=== PATIENT | male | born 1995 | race Caucasian/White ===

== ENCOUNTER 2020-03-01 13:23 | Emergency (ER) | payer OTHER ==
--- NOTE | 2020-03-01 13:39 | ED Physician Documentation ---
PD HPI CHEST PAIN - Stated complaint Stated Complaint: CHEST PX - Chief complaint Chief Complaint: Cardiac - History obtained from History obtained from: Patient - History of Present Illness Timing - onset: Yesterday Timing - onset during: Rest Timing - duration: Hours Timing - details: Gradual onset, Still present Quality: Pressure Location: Left chest Radiation: Left upper extremity Improved by: Nothing Worsened by: Other (nothing) Associated symptoms: Feeling faint / dizzy Similar symptoms before: Has not had sx before Recently seen: Not recently seen - Additional information Additional information: Previously well 24-year-old male has developed some pain in his left substernal chest area radiating into his left arm. He states that this is a 3-4 out of 10. He has persistence of this pain and he is come out to the emergency department for evaluation feeling some lightheadedness yesterday. Review of Systems Constitutional: denies: Fever, Myalgias Eyes: denies: Decreased vision Ears: denies: Ear pain, Drainage/discharge Nose: denies: Rhinorrhea / runny nose, Congestion Throat: denies: Sore throat Cardiac: reports: Chest pain / pressure. denies: Palpitations, Pedal edema, Calf pain Respiratory: denies: Dyspnea, Cough GI: denies: Abdominal Pain, Nausea, Vomiting : denies: Dysuria, Frequency PD PAST MEDICAL HISTORY - Present Medications Home Medications: Ambulatory Orders Medication Instructions Recorded Confirmed No Known Home Medications 03/01/20 03/01/20 - Allergies Allergies/Adverse Reactions: Allergies Allergy/AdvReac Type Severity Reaction Status Date / Time No Known Drug Allergies Allergy Verified 03/01/20 13:31 PD ED PE NORMAL - Vitals Vital signs reviewed: Yes (hpyertensive ) - General General: Alert and oriented X 3, No acute distress, Well developed/nourished - HEENT HEENT: Atraumatic, PERRL, EOMI - Neck Neck: Supple, no meningeal sign, No bony TTP - Cardiac Cardiac: RRR, No murmur - Respiratory Respiratory: No respiratory distress, Clear bilaterally, Other (mild chest wall pain to palp) - Abdomen Abdomen: Soft, Non tender - Back Back: No CVA TTP, No spinal TTP - Derm Derm: Normal color, Warm and dry, No rash - Extremities Extremities: No deformity, No edema, No calf tenderness / cord - Neuro Neuro: Alert and oriented X 3, licensed final expense agents 2-12 intact, No motor deficit, No sensory deficit, Normal speech Eye Opening: Spontaneous Motor: Obeys Commands Verbal: Oriented GCS Score: 15 - Psych Psych: Normal mood, Normal affect Results - Vitals Vitals: Vital Signs - 24 hr 03/01/20 03/01/20 03/01/20 13:31 14:03 14:30 Temperature 36.8 C 36.5 C Heart Rate 68 54 L 69 Respiratory 18 18 15 Rate Blood Pressure 148/91 H 119/60 119/76 O2 Saturation 100 100 99 Oxygen O2 Source Room air - EKG (time done) 1331 Rate: Rate (enter#) Rhythm: NSR Ischemia: Non specific changes (repolarization abnormality to the inferior leads) Compare to prior EKG: Old EKG unavailable Computer interpretation: Disagree with computer (I do not see ST elevation in V5/6) - Labs Labs: Laboratory Tests 03/01/20 03/01/20 03/01/20 13:43 13:43 13:43 WBC 5.5 RBC 5.03 Hgb 15.2 Hct 44.1 MCV 87.7 MCH 30.2 MCHC 34.5 RDW 12.0 Plt Count 230 MPV 11.2 Neut # (Auto) 2.8 Lymph # (Auto) 2.1 [place] # (Auto) 0.5 Eos # (Auto) 0.1 Baso # (Auto) 0.1 Absolute Nucleated RBC 0.00 Nucleated RBC % 0.0 Sodium 138 Potassium 4.1 Chloride 102 Carbon Dioxide 27 Anion Gap 9.0 BUN 15 Creatinine 1.0 Estimated GFR (MDRD) 90 Glucose 95 Calcium 9.6 Total Bilirubin 0.7 AST 30 ALT 55 Alkaline Phosphatase 46 Troponin I High Sens 2.6 Total Protein 7.9 Albumin 4.6 Globulin 3.3 Albumin/Globulin Ratio 1.4 Lipase 40 - Rads (name of study) chest Radiology: Prelim report reviewed (Impression: Mildly reduced inspiratory volume, source of chest pain is not seen.), EMP read indepedently, See rad report PD MEDICAL DECISION MAKING - ED course Complexity details: reviewed results, re-evaluated patient, considered differential, d/w patient ED course: 24 y/o male with atypical chest pain with negative diagnostics. Departure - Departure Disposition: 01 Home, Self Care Clinical Impression: Atypical chest pain Condition: Stable Instructions: ED Chest Pain Atypical Unkn Cause Follow-Up: [facility] [Provider Group] Discharge Date/Time: 03/01/20 14:41
[2020-03-01] MEDS ORDERED: KETOROLAC 30 MG/ML VIAL IVP STA (13:46)
[2020-03-01] MEDS ORDERED: DEXAMETHASONE 10 MG/ML VIAL IVP STA (13:46)
[2020-03-01 13:58] LABS: BASOPHILS # (AUTO) 0.1 10^3/uL (0.0-0.1); BASOPHILS % (AUTO) 0.9 %; EOSINOPHILS # (AUTO) 0.1 10^3/uL (0.0-0.7); HGB - HEMOGLOBIN 15.2 g/dL (14.0-18.0); LYMPHOCYTES # (AUTO) 2.1 10^3/uL (1.5-3.5); LYMPHOCYTES % (AUTO) 37.8 %; MEAN CORPUSCULAR HEMOGLOBIN 30.2 pg (27.0-31.0); MEAN CORPUSCULAR HGB CONC 34.5 g/dL (32.0-36.0); MEAN CORPUSCULAR VOLUME 87.7 fL (80.0-94.0); MEAN PLATELET VOLUME 11.2 fL (7.4-11.4); MONOCYTES # (AUTO) 0.5 10^3/uL (0.0-1.0); MONOCYTES % (AUTO) 8.2 %; NEUTROPHILS # (AUTO) 2.8 10^3/uL (1.5-6.6); NEUTROPHILS % (AUTO) 50.7 %; PLT - PLATELET COUNT 230 10^3/uL (130-450); RED BLOOD COUNT 5.03 10^6/uL (4.70-6.10); WHITE BLOOD COUNT 5.5 x10^3/uL (4.8-10.8)
--- NOTE | 2020-03-01 14:02 | XRAY Report ---
PROCEDURE: Chest 1 View X-Ray INDICATIONS: chest pain TECHNIQUE: One view of the chest was acquired. COMPARISON: FINDINGS: Surgical changes and devices: None. Lungs and pleura: No pleural effusions or pneumothorax. Lungs are clear considering mildly reduced inspiratory volume. Mediastinum: Mediastinal contours appear normal. Heart size is normal. Bones and chest wall: No suspicious bony lesions. Overlying soft tissues appear unremarkable. IMPRESSION: Mildly reduced inspiratory volume, source of chest pain is not seen. Reviewed by: Neftali Pepper MD on 03/01/2020 2:01 PM PDT Approved by: Neftali Pepper MD on 03/01/2020 2:01 PM PDT Station ID: [id number]
[2020-03-01 14:12] LABS: ALBUMIN 4.6 g/dL (3.2-5.5); ALBUMIN/GLOBULIN RATIO 1.4 (1.0-2.2); BILIRUBIN,TOTAL 0.7 mg/dL (0.2-1.0); CALCIUM 9.6 mg/dL (8.5-10.3); TOTAL PROTEIN 7.9 g/dL (6.7-8.2)
[2020-03-01 14:40] VITALS: BP 119/76
== END 2020-03-01 14:41 | disposition home or self-care (01) ==
LOC: ED 13:23
DX: R07.89 Other chest pain (principal); R03.0 Elevated blood-pressure reading, without diagnosis of hypertension
CPT/HCPCS: 36415; 71045; 80053; 83690; 84484; 85025; 93005; 96374; 99284

== ENCOUNTER 2020-08-13 17:37 | Emergency (ER) | payer OTHER ==
[2020-08-13] MEDS ORDERED: KETOROLAC 30 MG/ML VIAL IM STA (19:58)
[2020-08-13] MEDS ORDERED: PROMETHAZINE 25 MG/1 ML VIAL IM STA (19:58)
[2020-08-13] MEDS ORDERED: ONDANSETRON ODT 4 MG TABLET TL STA (20:07)
--- NOTE | 2020-08-13 20:36 | ED Physician Documentation ---
PD HPI HEADACHE - Stated complaint Stated Complaint: AGEE/VOMITING - Chief complaint Chief Complaint: Neuro - History obtained from History obtained from: Patient - History of Present Illness Timing - onset: Today Timing - onset during: Rest Timing - details: Gradual onset Pain level max: 8 Pain level now: 8 Location: Global Quality: Throbbing, Aching. No: Thunderclap Associated symptoms: Nausea, Vomiting Improved by: Rest Worsened by: Light, Noise, Moving Contributing factors: No: Anticoagulated, Possible carbon monoxide, Hypertension, Recent illness, Trauma Similar symptoms before: Diagnosis (Migraine headaches) - Additional information Additional information: 25-year-old male with a headache today. He states similar to his prior history of migraine headaches. Has been going on throughout most of the day. Gradual in onset, 8 out of 10. Global, throbbing aching. Has had nausea and vomiting today as well. Has not taken anything for the headache. No recent trauma. Review of Systems Constitutional: denies: Fever, Chills Cardiac: denies: Chest pain / pressure Respiratory: denies: Cough GI: reports: Nausea, Vomiting. denies: Abdominal Pain, Diarrhea Skin: denies: Rash, Abrasion (s) Musculoskeletal: denies: Neck pain, Back pain Neurologic: denies: Focal weakness, Seizure, Head injury PD PAST MEDICAL HISTORY - Past Medical History Past Medical History: Yes Neuro: Migraines - Past Surgical History Past Surgical History: No - Present Medications Home Medications: Ambulatory Orders Medication Instructions Recorded Confirmed Ondansetron Odt [Zofran] 4 mg TL Q6H PRN #10 tablet 08/13/20 - Allergies Allergies/Adverse Reactions: Allergies Allergy/AdvReac Type Severity Reaction Status Date / Time No Known Drug Allergies Allergy Verified 08/13/20 17:54 - Social History Does the pt smoke?: No Smoking Status: Never smoker Does the pt drink ETOH?: No Does the pt have substance abuse?: No - Immunizations Immunizations are current?: Yes - POLST Patient has POLST: No PD ED PE NORMAL - Vitals Vital signs reviewed: Yes - General General: Alert and oriented X 3, No acute distress - HEENT HEENT: Atraumatic, PERRL, EOMI, Moist mucous membranes, Pharynx benign - Neck Neck: Supple, no meningeal sign, No bony TTP - Cardiac Cardiac: RRR, Strong equal pulses - Respiratory Respiratory: No respiratory distress, Clear bilaterally - Abdomen Abdomen: Soft, Non tender, Non distended - Back Back: No spinal TTP - Derm Derm: Warm and dry - Neuro Neuro: Alert and oriented X 3, distribution transformer assembler 2-12 intact, No motor deficit, No sensory deficit, Normal speech Eye Opening: Spontaneous Motor: Obeys Commands Verbal: Oriented GCS Score: 15 - Psych Psych: Normal mood, Normal affect Results - Vitals Vitals: Vital Signs - 24 hr 08/13/20 08/13/20 17:49 20:50 Temperature 36.8 C 36.4 C L Heart Rate 75 73 Respiratory 15 16 Rate Blood Pressure 121/64 138/73 H O2 Saturation 100 99 Oxygen O2 Source Room air PD MEDICAL DECISION MAKING - ED course Complexity details: reviewed results, re-evaluated patient, considered differential, d/w patient ED course: 25-year-old male with his usual migraine headache. Given Toradol and Zofran. Nausea and vomiting resolved. Headache resolved. Request to go home. No evidence of subarachnoid hemorrhage, tumor. Patient counseled regarding signs and symptoms for which I believe and urgent re-evaluation would be necessary. Patient with good understanding of and agreement to plan and is comfortable go ing home at this time This document was made in part using voice recognition software. While efforts are made to proofread this document, sound alike and grammatical errors may occur. Departure - Departure Disposition: 01 Home, Self Care Clinical Impression: Migraine Qualifiers: Migraine type: unspecified Status migrainosus presence: without status migrainosus Intractability: not intractable Qualified Code(s): G43.909 - Migraine, unspecified, not intractable, without status migrainosus Vomiting Qualifiers: Vomiting type: unspecified Vomiting Intractability: non-intractable Nausea presence: with nausea Qualified Code(s): R11.2 - Nausea with vomiting, unspecified Condition: Good Instructions: ED Headache Migraine, ED Nausea Vomiting Follow-Up: your,doctor in 1 week [Other] Prescriptions: Ondansetron Odt [Zofran] 4 mg TL Q6H PRN #10 tablet PRN Reason: Nausea / Vomiting Comments: Follow-up with your doctor for further care. Return if you worsen. Drink plenty of fluids and rest. You can use Motrin or Tylenol as needed for headaches. Discharge Date/Time: 08/13/20 21:04
[2020-08-13 20:54] VITALS: BP 138/73
== END 2020-08-13 21:04 | disposition home or self-care (01) ==
LOC: ED 17:37
DX: G43.909 Migraine, unspecified, not intractable, without status migrainosus (principal)
CPT/HCPCS: 96372; 99283; 99284; Q0162

== ENCOUNTER 2021-01-10 08:00 | Outpatient (CLI) | payer OTHER ==
[2021-01-10 20:55] LABS: RAPID STREP SCREEN Negative (Negative)
== END 2021-01-10 23:59 | disposition home or self-care (01) ==
LOC: LAB.N 08:00
PROVIDERS: ATTEND Family Medicine
DX: R05 Cough (principal); R07.0 Pain in throat; Z20.822 Contact with and (suspected) exposure to COVID-19
CPT/HCPCS: 87070; 87077; 87430

== ENCOUNTER 2021-04-23 06:53 | Emergency (ER) | payer OTHER ==
[2021-04-23] MEDS ORDERED: DEXAMETHASONE 10 MG/ML VIAL IVP STA (07:30)
[2021-04-23] MEDS ORDERED: SODIUM CHLORIDE 0.9% 1,000 ML IV STA (07:30)
[2021-04-23] MEDS ORDERED: KETOROLAC 30 MG/ML VIAL IVP STA (07:30)
[2021-04-23] MEDS ORDERED: PROCHLORPERAZINE 10 MG/2 ML VIAL IVP STA (07:31)
--- NOTE | 2021-04-23 07:31 | ED Physician Documentation ---
PD HPI HEADACHE - Stated complaint Stated Complaint: HEAD PX/BODY ACHES - Chief complaint Chief Complaint: Neuro - History obtained from History obtained from: Patient - History of Present Illness Timing - onset: How many weeks ago (1) Timing - onset during: Rest, Light activity Timing - duration: Weeks (1) Timing - details: Gradual onset, Still present Worst headache ever?: No: Worst headache ever? (similar in chracter to few prior headaches, dx migraines. Had MRI few years ago in eval of headaches. Current one is similar though longest he has had and somewhat more intense.) Location: Right Quality: Throbbing, Aching Associated symptoms: Nausea. No: Fever, Stiff neck, Vomiting, Weakness, Numbness Improved by: Dark room Worsened by: Light, Noise Contributing factors: No: Recent illness (was not ill with onset of the headache, but has felt aches and malaise the past day now.), Trauma Similar symptoms before: Has not had sx before Review of Systems Constitutional: reports: Myalgias (just the past day). denies: Fever Nose: denies: Rhinorrhea / runny nose, Congestion Throat: denies: Sore throat Cardiac: denies: Chest pain / pressure Respiratory: denies: Cough GI: reports: Nausea. denies: Abdominal Pain, Vomiting Skin: denies: Rash, Lesions Neurologic: denies: Focal weakness, Numbness PD PAST MEDICAL HISTORY - Past Medical History Cardiovascular: None Respiratory: None Neuro: Migraines Endocrine/Autoimmune: None - Past Surgical History Past Surgical History: No - Present Medications Home Medications: Ambulatory Orders Medication Instructions Recorded Confirmed HYDROcod/ACETAM 5/325 [[place] 5/325] 1 ea PO Q6H PRN #5 tablet 04/23/21 Ondansetron Odt [Zofran] 4 mg TL Q6H PRN #10 tablet 04/23/21 dexAMETHasone [Decadron] 4 mg PO DAILY #5 tablet 04/23/21 - Allergies Allergies/Adverse Reactions: Allergies Allergy/AdvReac Type Severity Reaction Status Date / Time No Known Drug Allergies Allergy Verified 04/23/21 07:09 - Social History Does the pt smoke?: No Smoking Status: Never smoker Does the pt drink ETOH?: No Does the pt have substance abuse?: No - Immunizations Immunizations are current?: Yes - POLST Patient has POLST: No PD ED PE NORMAL - Vitals Vital signs reviewed: Yes - General General: Alert and oriented X 3, Well developed/nourished, Other (appears uncomfortable, with light sensitive. ) - HEENT HEENT: Atraumatic, Pharynx benign - Neck Neck: Supple, no meningeal sign, No adenopathy - Cardiac Cardiac: RRR, No murmur - Respiratory Respiratory: Clear bilaterally - Abdomen Abdomen: Soft, Non tender - Derm Derm: Normal color, Warm and dry - Extremities Extremities: Normal ROM s pain - Neuro Neuro: Alert and oriented X 3, No motor deficit, No sensory deficit, Normal speech Results - Vitals Vitals: Vital Signs - 24 hr 04/23/21 04/23/21 07:06 09:20 Temperature 36.4 C L Heart Rate 72 60 Respiratory 16 16 Rate Blood Pressure 136/77 H 126/73 O2 Saturation 97 99 Oxygen O2 Source Room air PD MEDICAL DECISION MAKING - ED course Complexity details: re-evaluated patient (headache improved with Toradol/Compazine/decadron. Seems c/w migraine. Shared decision to not do much testing. ), considered differential (migraine like headache and symptoms for a week. Now also some myalgias for a day. ), d/w patient Departure - Departure Disposition: 01 Home, Self Care Clinical Impression: Migraine headache Qualifiers: Migraine type: without aura Status migrainosus presence: with status migrainosus Intractability: not intractable Qualified Code(s): G43.001 - Migraine without aura, not intractable, with status migrainosus Condition: Stable Record reviewed to determine appropriate education?: Yes Instructions: ED Headache Migraine Follow-Up: BAM GRADY MD [Primary Care Provider] - Prescriptions: dexAMETHasone [Decadron] 4 mg PO DAILY #5 tablet HYDROcod/ACETAM 5/325 [[place] 5/325] 1 ea PO Q6H PRN #5 tablet PRN Reason: Pain Ondansetron Odt [Zofran] 4 mg TL Q6H PRN #10 tablet PRN Reason: Nausea / Vomiting Comments: This sounds like a prolonged migraine headache. I would anticipate it continuing to decrease and be away today. If you have some lingering headache, you can use Tylenol every 4 hours for pain or hydrocodone if needed for worse pain. If you do have any lingering headache through the day or into tomorrow, then also use the Decadron steroid daily for a few more days. Use ondansetron if needed for nausea. If you are improved through today and feel better then return to work tomorrow. Have the prescription medicines in reserve for future migraine headaches that you can use: the nausea medicine along with Tylenol or ibuprofen and a dose of the Decadron steroid. Add a dose of the hydrocodone if needed. Hopefully this would improve the headache within an hour or so, so it does not have to be as prolonged. Your COVID test should result in a day or two. You have a Covid test pending. You need to self quarantine until the result is done and negative. Do not leave your house. Do not get near anybody. The results should be done in 48 to 72 hours, but sometimes longer. We will call with a positive result, the fastest way to get a negative result for confirmation though is to go to the hospital website at [email or web address], click on the my [facility] tab and sign up for the patient portal. If any friends or family get sick and would like to have a Covid test done, but do not have signs or symptoms that would necessitate being hospitalized, we encourage testing throughone of the local pharmacies or the Health Department. Call them to schedule an appointment. I transmitted your prescriptions to [facility] pharmacy in [place]. I am prescribing a short course of narcotic pain medication for you. These are potentially dangerous and addictive medications that should be used carefully. These medications may constipate you. Take an [id number] stool softener such as docusate twice daily with plenty of water while taking these medications. If you go 24 hours without a bowel movement, take [id number] MiraLAX, per package instructions. Do not drink or drive while taking these medications. If you received narcotic or sedating medications while in the emergency department do not drive for 24 hours. Store this medication in a safe, secure place and out of reach of children. It is a violation of federal law to give or sell this medication to another person or to use in a manner other than prescribed. The ED will not refill narcotic prescriptions, including prescriptions lost or stolen. You can dispose of unwanted medications at the [facility]'s office or at several pharmacies such as [facility]. Forms: Activity restrictions Discharge Date/Time: 04/23/21 09:20
[2021-04-23 09:21] VITALS: BP 126/73
== END 2021-04-23 09:20 | disposition home or self-care (01) ==
LOC: ED 06:53
DX: G43.001 Migraine without aura, not intractable, with status migrainosus (principal); Z20.822 Contact with and (suspected) exposure to COVID-19
CPT/HCPCS: 96374; 96375; 99283

== ENCOUNTER 2021-05-02 09:17 | Emergency (ER) | payer OTHER ==
[2021-05-02 09:34] VITALS: BP 147/78
--- NOTE | 2021-05-02 12:25 | ED Physician Documentation ---
History of Present Illness - Stated complaint Stated Complaint: RT FOOT NUMB - Chief complaint Chief Complaint: Ext Problem - History obtained from History obtained from: Patient - History of Present Illness Timing: Yesterday Pain level max: 0 Pain level now: 0 - Additonal information Additional information: Patient is a 25-year-old male, active [employer] who presents to the emergency department stating that he feels a tingling on his right foot, lateral aspect near the heel. Nothing makes it better or worse. Ambulating without difficulty. Denies any injury. Does wear boots at work. No other symptoms. No headache. No head injury. No focal weakness. No other numbness. Review of Systems Constitutional: denies: Fever, Chills GI: denies: Vomiting Skin: denies: Rash Musculoskeletal: denies: Neck pain, Back pain Neurologic: denies: Headache, Head injury PD PAST MEDICAL HISTORY - Past Medical History Past Medical History: Yes Cardiovascular: None Respiratory: None Neuro: Migraines Endocrine/Autoimmune: None GI: None : None HEENT: None Psych: None Musculoskeletal: None Derm: None - Past Surgical History Past Surgical History: No - Present Medications Home Medications: Ambulatory Orders Medication Instructions Recorded Confirmed HYDROcod/ACETAM 5/325 [[place] 5/325] 1 ea PO Q6H PRN #5 tablet 04/23/21 05/02/21 Ondansetron Odt [Zofran] 4 mg TL Q6H PRN #10 tablet 04/23/21 05/02/21 dexAMETHasone [Decadron] 4 mg PO DAILY #5 tablet 04/23/21 05/02/21 Sertraline [Zoloft] 25 mg PO DAILY 05/02/21 05/02/21 Topiramate [Topamax] 25 mg PO DAILY 05/02/21 05/02/21 - Allergies Allergies/Adverse Reactions: Allergies Allergy/AdvReac Type Severity Reaction Status Date / Time No Known Drug Allergies Allergy Verified 05/02/21 09:34 - Social History Does the pt smoke?: No Smoking Status: Never smoker Does the pt drink ETOH?: No Does the pt have substance abuse?: No - Immunizations Immunizations are current?: Yes - POLST Patient has POLST: No PD ED PE NORMAL - Vitals Vital signs reviewed: Yes - General General: Alert and oriented X 3, No acute distress - HEENT HEENT: Moist mucous membranes - Neck Neck: Supple, no meningeal sign - Cardiac Cardiac: RRR, Strong equal pulses - Respiratory Respiratory: No respiratory distress, Clear bilaterally - Derm Derm: Warm and dry - Extremities Extremities: No calf tenderness / cord - Neuro Neuro: Alert and oriented X 3, No motor deficit, Other (Patient states mild numbness to the posterolateral heel of the right foot. Otherwise normal examination of the foot, ankle and lower leg. Normal pulses. Brisk cap refill.) - Psych Psych: Normal mood, Normal affect Results - Vitals Vitals: Vital Signs - 24 hr 05/02/21 09:32 Temperature 36.4 C L Heart Rate 80 Respiratory 16 Rate Blood Pressure 147/78 H O2 Saturation 98 Oxygen O2 Source Room air PD MEDICAL DECISION MAKING - ED course Complexity details: considered differential, d/w patient ED course: Patient with paresthesias of the posterior lateral portion of the right foot near the heel. Possible nerve irritation versus compression from boots/socks. Recommend he elevate the foot whenever possible, change socks and boots if he is able. We will have him follow-up with his doctor for further car e. No evidence of stroke, or acute arterial occlusion, DVT, or metabolic disease. Patient counseled regarding signs and symptoms for which I believe and urgent re-evaluation would be necessary. Patient with good understanding of and agreement to plan and is comfortable going home at this time This document was made in part using voice recognition software. While efforts are made to proofread this document, sound alike and grammatical errors may occur. Departure - Departure Disposition: 01 Home, Self Care Clinical Impression: Paresthesia Condition: Good Instructions: ED Paraesthesias Follow-Up: BAM GRADY MD [Primary Care Provider] - Within 1 week Comments: Usually this will resolve on its own and does not need any further care. If you are still experience symptoms in 1 week, please follow-up with your doctor for further care.
== END 2021-05-02 12:32 | disposition home or self-care (01) ==
LOC: ED 09:17
DX: R20.2 Paresthesia of skin (principal)
CPT/HCPCS: 99281; 99282

== ENCOUNTER 2021-08-14 12:42 | Outpatient (CLI) | payer OTHER ==
[2021-08-14 13:40] VITALS: BP 130/88
--- NOTE | 2021-08-14 13:40 | SLEEP CARE CONSULTATION ---
Information from patient questionnaire entered by Katheryn Knott MA. I have reviewed and concur with the information entered by Katheryn Knott MA. This document represents the service I personally performed and the decisions made by me, Clary Willams ARNP. History of Present Illness Service Date and Time: 08/14/2021 1242 Reason for Visit: New patient (ONSET 01/2021, NO PRIORS,) Chief Complaint: reports: Insomnia, Unrefreshed sleep, Snoring, Frequent awakeni ngs at night Date of Onset: 8 MONTHS Usual bedtime: 10 PM Time it takes to fall asleep: 2 HOURS Snores at night: Yes Observed to quit breathing while asleep: No Sleeps alone due to snoring: No Number of times waking at night: 5 OR MORE Reasons for waking at night: reports: Choking (feels like saliva goes in wrong tube, coughing), Pain, Bathroom, Other Toss, Turn, or Twitch while sleeping: Yes Recalls having dreams: Yes Usually gets out of bed at: [id number] Feels refreshed in the morning: No Morning headache: Yes (5 days a week; last until noon) Sleepy or fatigued during the day: Yes Ever fallen asleep while driving: Yes (drowsy driving, no accident but has gone out of [place]) Takes day naps: No Dreams during day naps: No Prior sleep studies: No Additional HPI information: I had the pleasure of seeing CURT DEE today regarding the possibility of him having a sleep disorder. His current complaints are frequent night awakenings, insomnia, snoring and unrefreshed sleep. He states he has difficulty with falling asleep and staying asleep. He states it varies on how long it take for him to fall sleep. He wakes up about 5 times a night for unknown reasons, possibly bathroom or noise. He has woke up just feeling like he is shaking, 1-2 times a week for the last few months (since March). 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 - Parasomnia Symptoms Ever been unable to move upon waking from sleep: No Walks in sleep: No Talks in sleep: No Ever acted out dreams in sleep: Yes Ever felt weak in the knees when startled or emotional: Yes (has not fallen to ground) Bothered by creepy, crawly, restless sensations in legs: No Problems with memory or concentration: Yes (little of both) Subjective Initial [place] Sleepiness Scale score: 21 (07/2021) Past Medical History Past Medical History: reports: Anxiety, GERD Social History The patient's occupation is a AM. Patient is and lives in [place]. Have you smoked in the past 12 months: No Alcohol use: No Caffeine use: Yes Caffeine amount and frequency: 1-2 X DAIILY Family History Family history of sleep disordered breathing: No Allergies and Home Medications Known drug allergies: No Drug allergies reviewed: Yes Home medication list reviewed: Yes Allergy and home medication list: Allergies No Known Drug Allergies Allergy (Verified 05/02/21 09:34) Medications: Omeprazole Topiramate Venlafaxine Review of Systems Weight gain over past 5 years: 60 pounds Cardiovascular: denies: high blood pressure Gastrointestinal: reports: heartburn Neurological: reports: headaches. denies: head trauma Psychiatric: reports: anxiety Ear/Nose/Throat: reports: wisdom teeth removed (has only one). denies: injury to nose, tonsillectomy Endocrine: reports: sluggishness, increased appetite Musculoskeletal: reports: back pain Physical Exam Vital signs obtained and entered by: Oh KNOTT CMA YAO Blood Pressure: 130/88 (RIGHT, PULSE 84, RESP 18, ) Cuff size: wrist Heart Rate: 81 O2 Saturation: 98 (PAPER) Height: 5 ft 11 in Weight: 249 lb (WITH CLOTHES) Body Mass Index: 34.7 BMI Classification: Obese Neck circumference: 15 (INCHES) Mouth and throat: narrow oropharynx Soft palate: long Hard palate: normal Uvula: long Uvula visualization: 100% Mallampati Class I Tongue: enlarged in size with teeth coon on lateral edges Tonsils: 1+ Neck: normal w/o lymphadenopathy or thyromegaly Heart: regular rate and rhythm Lungs: clear bilaterally Impression and Plan 1. Suspected Obstructive Sleep Apnea-Hypopnea Syndrome, as suggested by a history of loud and irregular snoring, gasping or choking in sleep, morning headache, frequent awakening during the night, unrefreshed sleep, cognitive impairment and excessive daytime sleepiness. Narrow oropharynx and obesity are common predisposing factors for obstructive sleep apnea-hypopnea syndrome. I recommend proceeding to polysomnography to confirm the diagnosis and to assess severity. If the patient has significant sleep disordered breathing, a manual CPAP titration study will also be performed to find the optimal treatment pressure. I informed the patient of what the sleep studies involve and after some discussion, obtained agreement to proceed. The pathophysiology of obstructive sleep apnea-hypopnea syndrome was discussed with the patient and health risks of cardiovascular and cerebrovascular disease if not treated. R isks of drowsy driving discussed in detail and patient advised to avoid long distance driving and to side puller at the first sign of drowsiness. Patient agreed to plan. * Schedule polysomnography +- manual CPAP titration study and return in 1-2 weeks after the study to discuss result and initiate therapy. * Avoid long distance driving or driving when feeling sleepy. * Avoid alcohol, sedative and muscle relaxant around bedtime. * Attempt to lose weight. * Review instructions provided by trained office staff on how to prepare for the sleep study. * Return for follow-up after sleep study completed. Counseling Topics: Weight loss health impact Visit Type: In Office Time Spent with Patient (minutes): 33 Provider Statement: I spent 100% of the Face to Face Visit with the patient with greater than 50% spent counseling the patient and coordination of care.
== END 2021-08-14 12:43 | disposition home or self-care (01) ==
LOC: SC 12:42
PROVIDERS: ATTEND Nurse Practitioner Family
DX: R06.83 Snoring (principal); G47.8 Other sleep disorders; G47.10 Hypersomnia, unspecified; R51.9 Headache, unspecified; E66.9 Obesity, unspecified; Z68.34 Body mass index [BMI] 34.0-34.9, adult
CPT/HCPCS: 99203; 99212

== ENCOUNTER 2021-09-03 16:05 | Emergency (ER) | payer OTHER ==
[2021-09-03 16:24] VITALS: BP 127/68
[2021-09-03] MEDS ORDERED: SUMAtriptan 6 MG/0.5 ML VIAL SUBQ STA (16:56)
[2021-09-03] MEDS ORDERED: KETOROLAC 60 MG/2 ML VIAL IM STA (16:56)
--- NOTE | 2021-09-03 17:41 | ED Physician Documentation ---
History of Present Illness - Stated complaint Stated Complaint: MIGRAINE,NAUSEA - Chief complaint Chief Complaint: Neuro - History obtained from History obtained from: Patient - History of Present Illness Timing: Today Pain level max: 8 Pain level now: 6 - Additonal information Additional information: 26-year-old male presents to the emergency department with a migraine headache. He states that this is similar to his usual migraine headaches. He has these frequently. Usually resolves with Topamax, but did not today so came in for evaluation. No fevers. No chills. Worse with light and sound, nothing makes it better. No trauma. No numbness or tingling. Patient states that he had right neck pain after lifting heavy items a few weeks ago, states that this is intermittent now. Does not currently have the pain. He also states sometimes he feels lightheaded, this usually resolves within a few seconds. No syncope. Intermittent nausea as well. None currently. No abdominal pain. Review of Systems Constitutional: denies: Fever, Chills Eyes: reports: Photophobia. denies: Loss of vision, Decreased vision Ears: denies: Ear pain Nose: denies: Rhinorrhea / runny nose, Congestion Throat: denies: Sore throat Cardiac: denies: Chest pain / pressure, Palpitations Respiratory: denies: Dyspnea, Cough GI: denies: Abdominal Pain, Vomiting, Diarrhea, Hematemesis, Bloody / black stool Skin: denies: Rash Musculoskeletal: denies: Back pain Neurologic: reports: Headache (Gradual onset, mainly frontal. Throbbing, aching). denies: Focal weakness, Numbness, Syncope, Seizure, Confused, Head injury, LOC PD PAST MEDICAL HISTORY - Past Medical History Cardiovascular: None Respiratory: None Neuro: Migraines Endocrine/Autoimmune: None GI: None : None HEENT: None Psych: None Musculoskeletal: None Derm: None - Past Surgical History Past Surgical History: No - Present Medications Home Medications: Ambulatory Orders Medication Instructions Recorded Confirmed Topiramate [Topamax] 25 mg PO DAILY 05/02/21 09/03/21 Omeprazole Magnesium 20 mg PO DAILY 09/03/21 09/03/21 Venlafaxine ER [Effexor ER] 75 mg PO DAILY 09/03/21 09/03/21 - Allergies Allergies/Adverse Reactions: Allergies Allergy/AdvReac Type Severity Reaction Status Date / Time No Known Drug Allergies Allergy Verified 09/03/21 16:25 - Social History Does the pt smoke?: No Smoking Status: Never smoker Does the pt drink ETOH?: No Does the pt have substance abuse?: No - Immunizations Immunizations are current?: Yes - POLST Patient has POLST: No PD ED PE NORMAL - Vitals Vital signs reviewed: Yes - General General: Alert and oriented X 3, No acute distress, Well developed/nourished - HEENT HEENT: Atraumatic, PERRL, EOMI, Ears normal, Moist mucous membranes, Pharynx benign, Dentition benign - Neck Neck: Supple, no meningeal sign, No bony TTP, No JVD, No bruit - Cardiac Cardiac: RRR, Strong equal pulses - Respiratory Respiratory: No respiratory distress, Clear bilaterally - Abdomen Abdomen: Soft, Non tender, Non distended - Back Back: No spinal TTP - Derm Derm: Warm and dry - Extremities Extremities: No edema, No calf tenderness / cord - Neuro Neuro: Alert and oriented X 3, inclusion special educator 2-12 intact, No motor deficit, No sensory deficit, Other (Normal bilateral lower extremity patellar and ankle jerk reflexes. Normal great toe extension bilaterally. no saddle anesthesia) Eye Opening: Spontaneous Motor: Obeys Commands Verbal: Oriented GCS Score: 15 - Psych Psych: Normal mood, Normal affect Results - Vitals Vitals: Vital Signs - 24 hr 09/03/21 09/03/21 16:19 16:55 Temperature 36.2 C L Heart Rate 89 Respiratory 16 18 Rate Blood Pressure 127/68 O2 Saturation 100 99 Oxygen O2 Source Room air PD MEDICAL DECISION MAKING - ED course Complexity details: re-evaluated patient, considered differential, d/w patient ED course: Patient with his usual migraine headache. Symptoms resolved with Toradol and Imitrex. No evidence of spinal cord injury. No focal neurological deficits. GCS 15. We will have him follow-up with his doctor for further care. No evidence of subarachnoid hemorrhage, meningitis, encephalitis. Patient counseled regarding signs and symptoms for which I believe and urgent re- evaluation would be necessary. Patient with good understanding of and agreement to plan and is comfortable going home at this time This document was made in part using voice recognition software. While efforts are made to proofread this document, sound alike and grammatical errors may occur. Departure - Departure Disposition: Home, Self Care Clinical Impression: Migraine Qualifiers: Migraine type: unspecified Status migrainosus presence: without status migrainosus Intractability: not intractable Qualified Code(s): G43.909 - Migraine, unspecified, not intractable, without status migrainosus Condition: Good Instructions: ED Headache Migraine Follow-Up: BAM GRADY MD [Primary Care Provider] - Within 1 week Comments: It is important you follow-up with your doctor for further care. Return if you worsen. Continue your current medications at home. Forms: Activity restrictions Discharge Date/Time: 09/03/21 17:52
== END 2021-09-03 17:52 | disposition home or self-care (01) ==
LOC: ED 16:05
DX: G43.909 Migraine, unspecified, not intractable, without status migrainosus (principal)
CPT/HCPCS: 96372; 99283; 99284

== ENCOUNTER 2021-09-05 09:33 | Outpatient (CLI) | payer OTHER | END 2021-09-05 09:34 | disposition home or self-care (01) | LOC: SC 09:33 | PROVIDERS: ATTEND Nurse Practitioner Family | DX: R09.02 Hypoxemia (principal) | CPT/HCPCS: 95806 ==

== ENCOUNTER 2021-09-26 10:57 | Outpatient (CLI) | payer OTHER ==
--- NOTE | 2021-09-26 11:24 | SLEEP CARE CONSULTATION ---
Information from patient questionnaire entered by Katheryn Black MA. I have reviewed and concur with the information entered by Katheryn Black MA. This document represents the service I personally performed and the decisions made by Екатерина feliciano Caren J, ARNP. History of Present Illness Service Date and Time: 09/26/2021 1057 Initial [place] Sleepiness Scale score: 21 (07/2021) Current [place] Sleepiness Scale score: 21 (08/2021) Additional HPI information: CURT DEE returns for follow up and results of the recently performed home sleep study. The patient was informed of the following findings: No significant sleep di sordered breathing with an average AHI of 1.2 and faiza oxygen saturation of 86%. I explained the pathophysiology behind obstructive sleep apnea. Patient does not have sleep apnea and was advised how weight gain could increase the risk of developing sleep apnea in the future. I strongly encouraged the patient to lose weight. Patient has moderate snoring. Snoring can be reduced by weight loss. Weight loss is best achieved with diet consult. Patient instructed to contact PCP for referral. Snoring can also be treated with an oral appliance from a dentist. Advised to check insurance coverage. In addition, an ENT evaluation can be do to see if other treatment is indicated. Patient counseled not drink alcohol less than 4 hours before bedtime as it can increase snoring and apnea. Patient was c autioned about risks of drowsy driving until sleepiness symptoms resolve. [facility] patient education on How to Sleep Better and Coping with Shift work given and reviewed with patient. Sleep Study - Results Type of Sleep Study: Home sleep study (F/U HOME STUDY, 09/06/21 [facility],) Prior sleep studies: No Polysomnography/Home Sleep Study results: Physician Impression: The quality of the study is good. The length of the study is adequate (> 240 minutes). Please also see the tabulated and graphic data. 1. No significant sleep disordered breathing, with an AHI of 1.2/hr and faiza SaO2 of 86%. During the study, the patient had 4 apneas (4 obstructive, 0 central, 0 mixed) and 3 hypopneas. The longest episode lasted 72.5 seconds. The patient slept adequately in supine position (supine AHI was 1.7 and non-supine, 0.95). 2. Hypoxemia (ICD-10 R09.02), minimal, with the lowest oxygen saturation of 86 % and 0.3 minutes with SaO2 under 90%. Baseline oxygen saturation was normal (Average oxygen saturation was 97%). Allergies and Home Medications Home medication list reviewed: Yes (no changes) Allergy and home medication list: Allergies No Known Drug Allergies Allergy (Verified 09/03/21 16:25) Review of Systems Review of systems same as previous: Yes (no changes) Physical Exam Vital signs obtained and entered by: AKI MALDONADO Blood Pressure: 139/95 (RIGHT, PULSE 64, RESP 18, ) Cuff size: wrist Heart Rate: 60 O2 Saturation: 99 (PAPER MASK) Height: 5 ft 11 in Weight: 250 lb (CLOTHES) Body Mass Index: 34.8 BMI Classification: Obese Impression and Plan 1. Snoring but no significant sleep disordered breathing. Patient states his work shifts changed from days to nights, he is on night currently. He can have difficulty falling asleep and has frequent awakenings. He was advised to try 4 mg OTC melatonin to help initiate sleep sooner and to follow a calming routine when preparing to sleep. He voiced understanding. Patient advised that often weight loss will reduce snoring as well as apnea risk. An oral appliance can also be used for snoring. This would require a dental consultation. Patient cautioned not to use other online appliances as can cause bite issues. A list of accredited dentists in [facility] and one local dentist who makes oral appliances is available in the office. Patient is advised to check if insurance will cover. An ENT consult can also be helpful to determine if any other treatment is an option. * Attempt to lose weight * Avoid alcohol consumption near bedtime * The patient is cautioned about driving until sleepiness is completely resolved. * Return as needed for follow up. Counseling Topics: Weight loss health impact Visit Type: In Office Time Spent with Patient (minutes): 21 Provider Statement: I spent 100% of the Face to Face Visit with the patient with greater than 50% spent counseling the patient and coordination of care.
[2021-09-26 11:25] VITALS: BP 139/95
== END 2021-09-26 10:58 | disposition home or self-care (01) ==
LOC: SC 10:57
PROVIDERS: ATTEND Nurse Practitioner Family
DX: R06.83 Snoring (principal); E66.9 Obesity, unspecified; Z68.34 Body mass index [BMI] 34.0-34.9, adult
CPT/HCPCS: 99212; 99213

== ENCOUNTER 2022-03-19 07:19 | Outpatient (CLI) | payer OTHER ==
--- NOTE | 2022-03-19 11:24 | MRI Report ---
PROCEDURE: CERVICAL SPINE WO INDICATIONS: CERVICALGIA TECHNIQUE: Noncontrast sagittal T1 spin echo and T2 fast spin echo, sagittal STIR, foraminal oblique sagittal T2 fast spin echo, and axial gradient echo or T2 fast spin echo through the cervical spine. COMPARISON: None. FINDINGS: Image quality: Excellent. Alignment and Curvature: There is overall straightening of the normal cervical lordosis. No signifi cant AP alignment abnormality can be seen. Bone Marrow: Marrow demonstrates normal overall signal. Spinal Cord: Visualized spinal cord has normal size and signal. No cerebellar tonsillar herniation. Paraspinous Soft Tissues: No paravertebral masses. Prevertebral soft tissues are normal in thicknes s. C2-C3: Normal in appearance. C3-C4: The disc height and disc signal are well preserved. Mild disc osteophyte complex is seen, wh ich is eccentric to the left. Mild to moderate facet hypertrophy is seen, left worse than right. Ther e is moderate left-sided and no right-sided neuroforaminal narrowing. No significant central canal na rrowing is seen. C4-C5: The disc height and disc signal are well preserved. Mild to moderate disc osteophyte complex is seen. There is at least moderate facet hypertrophy seen. There is at least moderate left-sided and mild right-sided neuroforaminal narrowing. No significant central canal narrowing is seen. C5-C6: The disc height and disc signal are well preserved. Mild disc osteophyte complex is seen. Moderate facet hypertrophy is seen. There is moderate left-sided and no right-sided neuroforaminal narrowing. No central canal narrowing is seen. C6-C7: Normal in appearance. C7-T1: Normal in appearance. IMPRESSION: Several levels of premature cervical spine degenerative change can be seen, left worse than right. Reviewed by: Moise Schofield MD on 03/19/2022 10:23 AM ESTELA Approved by: Moise Schoifeld MD on 03/19/2022 10:23 AM ESTELA Station ID: [id number]
== END 2022-03-19 07:20 | disposition home or self-care (01) ==
LOC: DI 07:19
PROVIDERS: ATTEND Student in an Organized Health Care Education/Training Program
DX: M47.812 Spondylosis without myelopathy or radiculopathy, cervical region (principal); M48.02 Spinal stenosis, cervical region

== ENCOUNTER 2022-05-24 08:27 | Outpatient (CLI) | payer OTHER ==
--- NOTE | 2022-05-24 12:45 | MRI Report ---
PROCEDURE: SHOULDER WO - RT INDICATIONS: PAIN IN RIGHT SHOULDER TECHNIQUE: Noncontrast oblique coronal T2 fast spin echo with fat saturation, oblique sagittal T1 spin echo and T2 fast spin echo with fat saturation, axial T1 spin echo and T2 fast spin echo with fat saturation a nd 3-D gradient echo through the shoulder. COMPARISON: None. FINDINGS: Image quality: Excellent. Rotator cuff: Mild supraspinatus and infraspinatus tendinosis. The teres minor tendon is intact. Ther e is mild subscapularis tendinosis. Mild grade 1-2 fatty infiltration of the teres minor muscle with mildly increased T2-weighted signal. The musculature is otherwise well-developed. Bones and bursae: No acute trabecular bone injury or fracture. Minimal degenerative changes are seen at the acromioclavicular joint. A focal cartilage fissuring is seen at the anterior-inferior glenoid No significant glenohumeral effusion or subacromial/subdeltoid bursal effusion. Capsule and soft tissues: No displaced labral tear. The proximal biceps long head tendon is intact. There is partial effacement of the normal fat signal in the rotator interval. The anterior band of th e inferior glenohumeral ligament and the middle glenohumeral ligaments are thickened. IMPRESSION: 1.Mild diffuse rotator cuff tendinosis involving the supraspinatus, infraspinatus, and subscapularis tendons. No significant rotator cuff tendon tear. 2.Mildly increased T2-weighted signal and grade 2 fatty infiltration within the teres minor muscle is suspicious for mild or early denervation changes. No mass is seen along the course of the axillary n erve. 3.Small focus of deep cartilage fissuring in the anterior-inferior glenoid. No displaced labral tear is seen. 4.Partial effacement of the rotator interval fat and mild thickening of the middle and inferior gleno humeral ligaments are nonspecific, but can be seen in the setting of the clinical syndrome of adhesiv e capsulitis. Reviewed by: Ar Che MD on 05/24/2022 12:44 PM PST Approved by: Ar Che MD on 05/24/2022 12:44 PM PST Station ID: [id number]
== END 2022-05-24 08:28 | disposition home or self-care (01) ==
LOC: DI 08:27
PROVIDERS: ATTEND Student in an Organized Health Care Education/Training Program
DX: M75.91 Shoulder lesion, unspecified, right shoulder (principal); M24.111 Other articular cartilage disorders, right shoulder